=== PATIENT | female | born 2000 | race Caucasian/White ===

== ENCOUNTER 2019-09-28 09:25 | Outpatient (CLI) | payer OTHER, SELFPAY ==
[2019-09-28 13:17] LABS: Basophils Percent Auto 0.5 % (0.2-1.2); Eosinophils Absolute Auto 0.1 K/mm3 (0-0.3); Eosinophils Percent Auto 0.7 % (0-4.4); Hematocrit 41.1 % (37.0-47.0); Hemoglobin 13.6 g/dL (12.0-15.0); Immature Granulocyte Absolute 0.02 K/mm3 (0.00-0.031); Immature Granulocyte Percent A 0.2 % (0-0.5); Lymphocytes Percent Auto 35.7 % (18.3-44.2); Mean Corpuscular HGB Conc 33.1 g/dl (32-36); Mean Corpuscular Hemoglobin 29.2 pg (26-34); Mean Corpuscular Volume 88.4 fl (80-100); Mean Platelet Volume 11.4 fl (7.4-10.4); Monocytes Absolute Auto 0.4 K/mm3 (0.1-0.6); Monocytes Percent Auto 4.9 % (2.6-8.5); Platelet Count Result 302 k/mm3 (150-375); Red Blood Count 4.65 M/mm3 (4.2-5.4); Red Cell Distribution Width 13.1 % (11.5-14.5); White Blood Count 8.7 K/mm3 (4.5-10.0)
[2019-09-28 13:29] LABS: Alanine Aminotransferase 37 U/L (4-35); Albumin Level 4.5 g/dL (3.5-5.1); Alkaline Phosphatase 95 U/L (38-126); Aspartate Amino Transferase 32 U/L (14-36); Bilirubin,Total 0.4 mg/dL (0.2-1.3); Blood Urea Nitrogen 12 mg/dL (7-17); Calcium 9.4 mg/dL (8.4-10.2); Carbon Dioxide 27 mmol/L (22-30); Chloride 95 mmol/L (98-107); Cholesterol 166 mg/dL (0-200); Estimated Glomerular Filt Rate > 60; Glucose 95 mg/dL (65-105); HDL Direct 64 mg/dL; Potassium 3.7 mmol/L (3.4-5.0); Sodium 138 mmol/L (137-145); Triglycerides 125 mg/dL (<150)
[2019-09-28 13:40] LABS: LDL Cholesterol Direct 84 mg/dL
[2019-09-28 13:45] LABS: Free T4 Free Thyroxine 1.04 ng/mL (0.78-2.19)
[2019-09-28 13:52] LABS: Creatinine Urine 104.9 mg/dL
[2019-09-28 13:57] LABS: MALB Creatinine Ratio 6.9 mg/g (0-30); Microalbumin Urine Random 7.2 mg/L (0-16.7)
[2019-09-28 14:00] LABS: Cortisol Random 9.99 ug/dL; Total Triiodothyronine (T3) 3.71 NG/ML (0.97-1.69)
[2019-10-01 03:41] LABS: Thyroid Peroxidase Antibodies 57 IU/mL (<9)
[2019-10-01 03:55] LABS: Adrenocorticotropic Hormone 22 pg/mL (6-50)
[2019-10-01 07:05] LABS: C-Peptide <0.10 ng/mL (0.80-3.85)
[2019-10-04 01:10] LABS: Islet Cell Antibody Screen NEGATIVE (NEGATIVE)
== END 2019-09-28 09:26 | disposition home or self-care (01) ==
LOC: ANHWCLAB 09:32
PROVIDERS: PCP Family Medicine; Visit Provider Internal Medicine Endocrinology, Diabetes & Metabolism
DX: E10.65 Type 1 diabetes mellitus with hyperglycemia (principal); R63.5 Abnormal weight gain
CPT/HCPCS: 36415; 80053; 80061; 82024; 82043; 82306; 82533; 84439; 84443; 84480; 84681; 85025; 86341; 86376

== ENCOUNTER 2020-05-29 10:34 | Outpatient (NON) | payer OTHER, SELFPAY ==
[2020-05-30 13:59] LABS: SARS-CoV-2 RNA PCR Negative
== END 2020-05-29 10:35 ==
PROVIDERS: PCP Family Medicine; Visit Provider Family Medicine
DX: Z01.812 Encounter for preprocedural laboratory examination (principal); Z20.828 Contact with and (suspected) exposure to other viral communicable diseases
CPT/HCPCS: 87635; C9803; U0003

== ENCOUNTER 2020-06-23 08:25 | Outpatient (NON) | payer OTHER, SELFPAY ==
[2020-06-23 19:59] LABS: SARS-CoV-2 RNA PCR Negative
== END 2020-06-23 08:26 ==
PROVIDERS: PCP Family Medicine; Visit Provider Family Medicine
DX: Z20.828 Contact with and (suspected) exposure to other viral communicable diseases (principal); R68.89 Other general symptoms and signs
CPT/HCPCS: 87635; C9803; U0003

== ENCOUNTER 2020-08-25 11:45 | Outpatient (CLI) | payer OTHER, SELFPAY ==
[2020-08-25 22:17] LABS: SARS-CoV-2 RNA PCR Positive
== END 2020-08-25 11:46 | disposition home or self-care (01) ==
LOC: CHSLAB 11:48
PROVIDERS: PCP Family Medicine; Visit Provider Family Medicine
DX: U07.1 COVID-19 (principal)
CPT/HCPCS: C9803; U0003

== ENCOUNTER 2020-10-17 12:36 | Emergency (ER) | payer OTHER, SELFPAY ==
--- NOTE | ~2020-10-17 | XR_ITS ---
EXAMINATION: XR forearm LT 2V DATE: 10/17/2020 13:19 INDICATION: Pain and swelling at the distal left forearm after a door closed on the forearm. TECHNIQUE: AP an lateral views of the left forearm were obtained. COMPARISON: none FINDINGS: Alignment is normal. No fracture. Joint spaces are normal. Soft tissues are unremarkable. No left elb ow joint effusion. IMPRESSION: 1. Negative left forearm radiographs. Reviewed, dictated and finalized at location A. LER OPERATOR
[2020-10-17 12:50] VITALS: BP 141/100; PULSE 120; RESP 20; TEMP 36.9; O2SAT 97
[2020-10-17] MEDS: KETOROLAC (*BKC) 60 MG/2 ML VIAL IM (13:20)
--- NOTE | 2020-10-17 14:00 | ED.UPPEXIN ---
HPI - Extremity Injury (Upper) General Chief Complaint: Extremity Injury, Upper Stated Complaint: left arm is hurt Time Seen by Provider: 10/17/20 12:55 Source: patient Mode of arrival: ambulatory Limitations: no limitations History of Present Illness HPI narrative: Patient was at work and a door handle fell on her left forearm just up from the wrist on the radial side. Pain has been sharp moderately severe and associated with a lump on her left forearm that looks like a deformity. Pain has been ongoing since injury. Nothing seemed to make pain better or worse, except pressure made it worse. Other injuries: none Handedness: right Place: work Severity: moderate Relieving factors: none Exacerbating factors: none Context: direct blow Associated symptoms: denies other symptoms Related Data Home Medications Medication Instructions Recorded Confirmed insulin glargine [Basaglar KwikPen 40 unit SUBCUT HS 10/17/20 10/17/20 U-100 Insulin] insulin lispro [Admelog SoloStar 1 unit SUBCUT AC 10/17/20 10/17/20 U-100 Insulin] trazodone 50 mg PO HS 10/17/20 10/17/20 venlafaxine 150 mg PO DAILY 10/17/20 10/17/20 Allergies Allergy/AdvReac Type Severity Reaction Status Date / Time Penicillins Allergy Mild Verified 07/08/17 12:42 Sulfa (Sulfonamide Allergy Mild Verified 07/08/17 12:42 Antibiotics) Review of Systems Constitutional: Constitutional: Reports no additional constitutional complaints Eyes: Eyes: Reports no additional eye complaints ENT: Reports system reviewed and no additional complaints, except as documented Cardiovascular: Cardiovascular: Reports no additional cardiovascular complaints Respiratory: Respiratory: Reports no additional respiratory complaints Gastrointestinal: Gastrointestinal: Reports no additional gastrointestinal complaints Genitourinary: Genitourinary: Reports no additional female genitourinary complaints Musculoskeletal: Musculoskeletal: Reports no additional musculoskeletal complaints Integumentary/Breasts: Skin/Breast: Reports system reviewed and no additional complaints, except as docu Neurologic: Reports system reviewed and no additional complaints, except as documented Psychiatric: Psychiatric: Reports no additional psychiatric complaints Endocrine: Endocrine: Reports no additional endocrine complaints Hematologic/Lymphatic: Hematologic/Lymphatic: Reports no additional hematologic/lymphatic complaints Allergic/Immunologic: Allergic/Immunologic: Reports no additional allergic/immunologic complaints PMFSH Past Medical History Medical History Type 1 diabetes Family History Family History Mother No significant past medical history Social History Social History (Updated 10/18/20 @ 00:15 by Jaun Jacobson MD) Smoking status: Never smoker Alcohol use details: none Exam HENMT: Head: normal to inspection Ears: external ears normal and TM's normal bilaterally General nose exam: Normal nares present Face and sinus: normal facial exam Mouth: Yes moist mucous membranes Throat: posterior oropharynx normal Eyes: Conjunctivae: conjunctivae normal Neck: Neck: normal visual inspection Lymphatic: no lymphadenopathy noted Chest: Chest palpation & inspection: normal inspection of the chest Resp: Effort & Inspection: normal respiratory effort Auscultation: clear to auscultation bilaterally Cardio: Rate: regular rate Rhythm: regular rhythm GI: GI Palp: Yes Soft to palpation (nontender) Skin: General skin exam: normal color Neuro: General: patient oriented x3 and moves all extremities Extrem: General: normal to inspection Psych: Appearance: grossly normal Mental Status: mental status grossly normal Thought content: Yes Normal thought content present Course Course Emergency Course: Patient was given ketorolac 60mg Im and felt better a few minutes late
[2020-10-17 14:06] VITALS: RESP 17
== END 2020-10-17 14:07 | disposition home or self-care (01) ==
PROVIDERS: Emergency Provider Emergency Medicine; PCP Family Medicine
DX: M79.632 Pain in left forearm (principal); W22.8XXA Striking against or struck by other objects, initial encounter
CPT/HCPCS: 73090; 96372; 99283; J1885

== ENCOUNTER 2020-12-31 13:29 | Emergency (ER) | payer OTHER, SELFPAY ==
[2020-12-31 13:35] VITALS: BP 141/79; PULSE 118; RESP 16; TEMP 36.4; O2SAT 100
--- NOTE | 2020-12-31 13:40 | ED.NAVMDI ---
HPI - Nausea/Vomiting/Diarrhea General Chief complaint: Nausea/Vomiting/Diarrhea Stated complaint: fever nausea diahhrea Time Seen by Provider: 12/31/20 13:40 Source: patient and RN notes reviewed History of Present Illness HPI Narrative: Patient is a 20-year-old female who presents the urgent care with complaints of fever, nausea, diarrhea and vomiting. Patient also reports of some sinus congestion and sore throat. States that it started on Tuesday and the other people in the home have also been sick. Patient states that their symptoms have since improved and that she is needing a work note . Patient denies of any known exposure to strep, flu or Covid. Patient is juvenile diabetic and states that her blood sugars been running in the 130s to 180s. Patient states she has been able to keep down some food and fluids. Currently denies of any abdominal pain, chest pain or shortness of breath. Patient has taken Tylenol and ibuprofen for the fevers. No other acute complaints. No acute distress noted. Patient aware of the plan of care. Some parts of this dictation were generated by voice recognition software and may contain typographical and/or grammatical inaccuracies. Related Data Home Medications Medication Instructions Recorded Confirmed insulin glargine [Basaglar KwikPen 40 unit SUBCUT HS 10/17/20 10/17/20 U-100 Insulin] insulin lispro [Admelog SoloStar 1 unit SUBCUT AC 10/17/20 10/17/20 U-100 Insulin] trazodone 50 mg PO HS 10/17/20 10/17/20 venlafaxine 150 mg PO DAILY 10/17/20 10/17/20 Allergies Allergy/AdvReac Type Severity Reaction Status Date / Time Penicillins Allergy Mild Unknown Verified 12/31/20 13:54 Sulfa (Sulfonamide Allergy Mild Unknown Verified 12/31/20 13:54 Antibiotics) Review of Systems Review of Systems: Narrative: CONSTITUTIONAL: Reports a fever and fatigue EYES: Denies visual changes, redness, or discharge. ENT: Reports of sinus congestion and sore throat CARDIOVASCULAR: Denies chest pain, palpitations, or edema. RESPIRATORY: Denies cough or dyspnea. GASTROINTESTINAL: Reports of diarrhea, nausea and vomiting GENITOURINARY: Denies dysuria or hematuria. SKIN: Denies rash or itching. MUSCULOSKELETAL: Denies back pain, joint pain. NEUROLOGIC: Denies headache, numbness, or weakness. All other systems reviewed are negative, except as documented in HPI. [facility] Past Medical History Medical History Type 1 diabetes Family History Family History Mother No significant past medical history Social History Social History (Updated 10/18/20 @ 00:15 by Jaun Jacobson MD) Smoking status: Never smoker Gender identity (if verbalized by the patient): Female Comments At the time of my signature, I reviewed and agree with the nursing past medical, surgical, social, and family history. There is no relevant family history pertinent to the patient complaint. Exam Narrative: Exam Narrative: GENERAL: This is a well-nourished, well-developed patient, in no apparent distress. HEAD: normocephalic, atraumatic. EYES: PERRL. Sclera clear/white. Vision is grossly intact. EARS: External ears normal, auditory canals clear and without drainage, TMs normal without perforation. Hearing grossly intact. NOSE: External nose normal with no obvious nasal discharge, nares without redness, no rhinorrhea. THROAT: Mucous membranes moist, posterior pharynx clear. NECK: Neck supple CARDIOVASCULAR: Regular rate and rhythm without murmurs, gallops, or rubs. RESPIRATORY: Clear to auscultation. Breath sounds equal bilaterally. No wheezes, rales, or rhonchi. GASTROINTESTINAL: Abdomen soft, non-tender, nondistended. Bowel sounds are active. SKIN: warm, intact with no suspicious lesions or rash, good texture and turgor. NEURO: awake, alert, and oriented to person, place and time. There were no obvious focal neurologic abnormalities.
[2020-12-31 13:52] LABS: Glucose Point of Care 251 (65-105)
--- NOTE | 2020-12-31 14:06 | PC.NURSE ---
NO UC ORDERED PER PROVIDER
== END 2020-12-31 14:12 | disposition home or self-care (01) ==
PROVIDERS: Emergency Provider Nurse Practitioner Family; PCP Family Medicine
DX: K52.9 Noninfective gastroenteritis and colitis, unspecified (principal); Z20.822 Contact with and (suspected) exposure to COVID-19; E10.9 Type 1 diabetes mellitus without complications; E03.9 Hypothyroidism, unspecified; F41.9 Anxiety disorder, unspecified; F32.9 Major depressive disorder, single episode, unspecified
CPT/HCPCS: 81003; 82948; 87081; 87426; 87880; 99213; C9803; G0463

== ENCOUNTER 2021-01-05 11:54 | Outpatient (CLI) | payer OTHER, SELFPAY ==
--- NOTE | ~2021-01-05 | XR_ITS ---
XR chest 2V DATE: 01/05/2021 12:12 INDICATION: Cough, drainage for one week TECHNIQUE: PA and lateral views COMPARISON: 08/11/2016 PA and lateral chest FINDINGS: Normal heart size. No hilar or mediastinal enlargement. No pulmonary infiltrate or consolid ation, pleural effusion or pulmonary vascular congestion or pneumothorax. Included skeletal structure s are unremarkable. IMPRESSION: Negative Reviewed, dictated and finalized at location A. IMPRESSION: Negative
== END 2021-01-05 11:55 | disposition home or self-care (01) ==
LOC: CHSIMG 11:57
PROVIDERS: PCP Family Medicine; Visit Provider Nurse Practitioner
DX: R05 Cough (principal)
CPT/HCPCS: 71046

== ENCOUNTER 2021-04-05 17:37 | Emergency (ER) | payer OTHER, SELFPAY ==
[2021-04-05 17:44] VITALS: BP 139/73; PULSE 116; RESP 18; TEMP 36.7; O2SAT 99
[2021-04-05 17:54] VITALS: BP 139/73; PULSE 116; RESP 18; TEMP 36.7; O2SAT 99
--- NOTE | 2021-04-05 18:00 | ED.URI ---
HPI - URI/Sore Throat General Chief Complaint: Upper Respiratory Infection Stated Complaint: Stuffy Nose and sore throat Time Seen by Provider: 04/05/21 17:50 Source: patient and RN notes reviewed Mode of arrival: ambulatory Limitations: no limitations History of Present Illness HPI Narrative: Patient presents today requesting a note to return to work. Patient works at [employer]. She has a 3 to 4-day history of nasal congestion and intermittent headache. 2 days ago she had a negative COVID-19 test done at her work. Her employer is requiring her to come in for a formal evaluation and formal diagnosis before she can return to work. Denies fever, cough, sore throat. She has been taking motrin and benadryl for symptoms. MD elicited complaint: nasal congestion Related Data Home Medications Medication Instructions Recorded Confirmed insulin glargine [Basaglar KwikPen 35 unit SUBCUT HS 10/17/20 04/05/21 U-100 Insulin] insulin lispro [Admelog SoloStar 1 unit SUBCUT AC 10/17/20 04/05/21 U-100 Insulin] venlafaxine 150 mg PO DAILY 10/17/20 04/05/21 alprazolam 0.25 mg PO QID PRN 04/05/21 04/05/21 drospirenone (contraceptive) 4 mg PO DAILY 04/05/21 04/05/21 [Slynd] venlafaxine 75 mg PO DAILY 04/05/21 04/05/21 Allergies Allergy/AdvReac Type Severity Reaction Status Date / Time Penicillins Allergy Mild Unknown Verified 04/05/21 17:51 Sulfa (Sulfonamide Allergy Mild Unknown Verified 04/05/21 17:51 Antibiotics) Review of Systems Review of Systems: CONSTITUTIONAL: Denies body aches, fever, chills, or sweats. EYES: Denies visual changes, redness, or discharge. ENT: Denies rhinorrhea, sore throat, or otalgia.+ Congestion CARDIOVASCULAR: Denies chest pain, palpitations, or edema. RESPIRATORY: Denies cough or dyspnea. GASTROINTESTINAL: Denies abdominal pain, nausea, vomiting, or diarrhea. GENITOURINARY: Denies dysuria or hematuria. SKIN: Denies rash, itching, or wounds. MUSCULOSKELETAL: Denies back pain, joint pain, or myalgia. NEUROLOGIC: Denies headache, numbness, tingling, or weakness. PSYCH: Denies depression or anxiety. [facility] Past Medical History Medical History Type 1 diabetes Family History Family History Mother No significant past medical history Social History Social History Smoking status: Never smoker Alcohol use details: none Gender identity (if verbalized by the patient): Female Comments At time of signature, I have reviewed and agree with nursing past medical, surgical, social and family history unless otherwise noted. Please see nursing chart for further information. There is no relevant family history pertinent to the presenting complaint Exam Narrative: GENERAL: Well-appearing, well-nourished, and in no acute distress. HEAD: Normocephalic, atraumatic. EYES: EOMI. No redness or drainage. Conjunctivae normal. ENT: Mucous membranes pink and moist. Nares mildly congested. No rhinorrhea. TMs normal bilaterally. Throat normal. Uvula midline. NECK: Normal AROM. Supple. No lymphadenopathy. CHEST: No respiratory distress. Clear to auscultation. HEART: Regular rate and rhythm. No murmur appreciated. Normal peripheral pulses. EXTREMITIES: Normal range of motion. No edema. SKIN: Warm, dry, no rash. Capillary refill normal. Normal skin turgor. NEURO: No focal deficits. Alert and oriented x3. Gait steady. PSYCH: Normal affect. No signs of depression or anxiety. Course Vital Signs Vital signs: Vital Signs Temperature 98.0 F 04/05/21 17:44 Pulse Rate 116 H 04/05/21 17:44 Respiratory Rate 18 04/05/21 17:44 Blood Pressure 139/73 04/05/21 17:44 Pulse Oximetry 99 04/05/21 17:44 Temperature 98.0 F 04/05/21 17:54 Pulse Rate 116 H 04/05/21 17:54 Respiratory Rate 18
== END 2021-04-05 18:08 | disposition home or self-care (01) ==
PROVIDERS: Emergency Provider Nurse Practitioner; PCP Family Medicine
DX: J00 Acute nasopharyngitis [common cold] (principal); E10.9 Type 1 diabetes mellitus without complications
CPT/HCPCS: 99211; G0463

== ENCOUNTER 2021-09-04 12:10 | Emergency (ER) | payer OTHER, SELFPAY ==
[2021-09-04 12:33] VITALS: BP 115/64; PULSE 99; RESP 18; TEMP 36.8; O2SAT 99
--- NOTE | 2021-09-04 12:42 | ED.URI ---
HPI - URI/Sore Throat General Chief Complaint: Upper Respiratory Infection Stated Complaint: Sore throat, cough, congestion Time Seen by Provider: 09/04/21 12:42 Source: patient, family, RN notes reviewed and old records reviewed Mode of arrival: ambulatory Limitations: no limitations History of Present Illness HPI Narrative: 20-year-old female presents to the [facility] with complaints of sore throat, cough and congestion for the last 3 days. States she is to home COVID test which she reports is negative. Has not taken her temperature. No other treatment prior to arrival Related Data Home Medications Medication Instructions Recorded Confirmed insulin glargine [Basaglar KwikPen 35 unit SUBCUT HS 10/17/20 09/04/21 U-100 Insulin] insulin lispro [Admelog SoloStar 1 unit SUBCUT AC 10/17/20 09/04/21 U-100 Insulin] venlafaxine 150 mg PO DAILY 10/17/20 09/04/21 alprazolam 0.25 mg PO QID PRN 04/05/21 09/04/21 drospirenone (contraceptive) 4 mg PO DAILY 04/05/21 09/04/21 [Slynd] venlafaxine 75 mg PO DAILY 04/05/21 09/04/21 Allergies Allergy/AdvReac Type Severity Reaction Status Date / Time Penicillins Allergy Mild Unknown Verified 09/04/21 12:38 Sulfa (Sulfonamide Allergy Mild Unknown Verified 09/04/21 12:38 Antibiotics) Review of Systems Review of Systems: All systems reviewed & are unremarkable except as noted in HPI and below Constitutional: Constitutional: Reports no additional constitutional complaints, Denies chills, Denies fever(s) and Denies headache(s) Eyes: Eyes: Reports no additional eye complaints ENT: Reports as per HPI, Denies vertigo, Denies dizziness, Denies headache(s), Reports nasal congestion and Reports sore throat Cardiovascular: Cardiovascular: Reports no additional cardiovascular complaints, Denies chest pain, Denies syncope, Denies rapid heart rate and Denies dyspnea Respiratory: Respiratory: Reports as per HPI, Reports cough, Denies dyspnea and Denies wheezing Gastrointestinal: Gastrointestinal: Reports no additional gastrointestinal complaints, Denies abdominal pain, Denies diarrhea, Denies nausea and Denies vomiting Musculoskeletal: Musculoskeletal: Reports no additional musculoskeletal complaints and Denies numbness Integumentary/Breasts: Skin/Breast: Reports system reviewed and no additional complaints, except as docu Neurologic: Reports system reviewed and no additional complaints, except as documented, Denies vertigo, Denies dizziness, Denies syncope, Denies headache(s), Denies focal weakness and Denies numbness Psychiatric: Psychiatric: Reports no additional psychiatric complaints Allergic/Immunologic: Allergic/Immunologic: Reports no additional allergic/immunologic complaints and Denies wheezing PMFSH Past Medical History Medical History Type 1 diabetes Family History Family History Mother No significant past medical history Social History Social History Smoking status: Never smoker Alcohol use details: none Gender identity (if verbalized by the patient): Female Comments At the time of my signature, I reviewed and agree with the nursing past medical, surgical, social, and family history. There is no relevant family history pertinent to the patient complaint. Exam Const: General: cooperative, healthy appearing, no acute distress, well developed and alert Nutritional Appearance: well nourished and obese Orientation/consciousness: patient oriented x3 Limitations: no limitations HENMT: Head: normal to inspection Ears: external ears normal, TM's normal bilaterally and EAC's normal General nose exam: Normal external nose present Face and sinus: normal facial exam Mouth: Yes Normal oral and palatal mucosa present Throat: uvula midline, postnasal drainage and tonsils absent Eyes: Conjunctivae: conjuncti
[2021-09-05 23:20] LABS: SARS-CoV-2 RNA PCR Negative
== END 2021-09-04 12:55 | disposition home or self-care (01) ==
PROVIDERS: Emergency Provider Nurse Practitioner; PCP Family Medicine
DX: B34.9 Viral infection, unspecified (principal); Z20.822 Contact with and (suspected) exposure to COVID-19; E10.9 Type 1 diabetes mellitus without complications
CPT/HCPCS: 87081; 87804; 87880; 99213; C9803; G0463; U0003; U0005

== ENCOUNTER 2022-11-17 10:42 | Emergency (ER) | payer OTHER, SELFPAY ==
[2022-11-17 10:55] VITALS: BP 116/72; PULSE 137; RESP 16; TEMP 36.9; O2SAT 100
--- NOTE | 2022-11-17 11:56 | ED.URI ---
HPI - URI/Sore Throat General Chief Complaint: Upper Respiratory Infection Stated Complaint: Cough/Sore Throat Time Seen by Provider: 11/17/22 11:56 Source: patient, RN notes reviewed and old records reviewed Mode of arrival: ambulatory Limitations: no limitations History of Present Illness MD elicited complaint: cough and sore throat Related Data Home Medications Medication Instructions Recorded Confirmed insulin glargine 100 unit/mL (3 35 unit subcut HS 10/17/20 11/17/22 mL) subcutaneous pen (Basaglar KwikPen U-100 Insulin) insulin lispro 100 unit/mL 1 sliding scale dose subcut AC 10/17/20 11/17/22 subcutaneous pen (Admelog SoloStar U-100 Insulin lispro) venlafaxine 150 mg 150 mg PO QAM 10/17/20 11/17/22 capsule,extended release 24 hr alprazolam 0.25 mg tablet 0.25 mg PO QID PRN Anxiety 04/05/21 11/17/22 venlafaxine 75 mg tablet 75 mg PO QPM 04/05/21 11/17/22 Allergies Allergy/AdvReac Type Severity Reaction Status Date / Time Penicillins Allergy Mild Unknown Verified 11/17/22 11:20 Sulfa (Sulfonamide Allergy Mild Unknown Verified 11/17/22 11:20 Antibiotics) Review of Systems Review of Systems: CONSTITUTIONAL: Denies malaise, chills, sweats, or fever. EYES: Denies visual changes, redness, or discharge. ENT: Reports rhinorrhea, congestion, sinus pain, otalgia and sore throat. CARDIOVASCULAR: Denies chest pain, palpitations, or edema. RESPIRATORY: Reports cough.? Denies dyspnea. GASTROINTESTINAL: Denies abdominal pain, nausea, vomiting, diarrhea SKIN: Denies rash or itching. MUSCULOSKELETAL: Denies myalgia. NEUROLOGIC: Denies headache. All systems reviewed & are unremarkable except as noted in HPI and below PMFSH Past Medical History Medical History Type 1 diabetes Family History Family History Mother No significant past medical history Social History Social History Smoking status: Never smoker Alcohol use details: none Gender identity (if verbalized by the patient): Female Comments At time of signature, agree with nursing past medical, surgical, social and family history. There is no relevant family history pertinent to the presenting complaint Exam Narrative: GENERAL: Well-appearing, well-nourished, and in no acute distress. HEAD: Normocephalic EYES: PERRLA, conjunctivae clear ENT: Nares clear, turbinates edematous and erythematous, clear discharge. Mucous membranes moist. TM pearly ramirez with dull light reflex bilaterally; no tragal tenderness. Oropharynx erythematous without lesions. Tonsils not enlarged and without exudate, no drooling, no hoarseness, no trismus, uvula midline. NECK: Supple. No lymphadenopathy CHEST: Clear to auscultation, breath sounds equal. No wheezing, rhonchi, rales, or stridor. No respiratory distress, speaks in full sentences. HEART: Regular rate and rhythm. No murmur heard. SKIN: Warm, dry, no rash. NEURO: Alert and oriented x3. PSYCH: Normal mood and affect Course Course Emergency Course: Patient is aware of diagnosis, understands and agrees to treatment plan.? Anticipatory guidance given.? Patient agrees to follow-up as directed and is aware of reasons to seek care at the emergency department. Portions of this record may have been created with voice recognition software Level of Care: Express Care Visit Vital Signs Vital signs: Vital Signs Temperature 36.9 C 11/17/22 10:55 Pulse Rate 137 H 11/17/22 10:55 Respiratory Rate 16 11/17/22 10:55 Blood Pressure 116/72 11/17/22 10:55 Pulse Oximetry 100 11/17/22 10:55 Oxygen Delivery Room Air 11/17/22 10:55 Temperature 36.9 C 11/17/22 10:55 Pulse Rate 137 H 11/17/22 10:55 Respiratory Rate 16 11/17/22 10:55 Blood Pressure 116/72 11/17/22 10:55 Pulse Oximetry 100
--- NOTE | 2022-11-17 12:06 | ED.URI ---
HPI - URI/Sore Throat General Chief Complaint: Upper Respiratory Infection Stated Complaint: Cough/Sore Throat Time Seen by Provider: 11/17/22 11:56 Source: patient, RN notes reviewed and old records reviewed Mode of arrival: ambulatory Limitations: no limitations History of Present Illness HPI Narrative: 22-year-old female who presents to [facility] with complaints of sore throat and bilateral ear pain which started last night. 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 Patient denies any known fevers, chills or sweats or body aches, no dyspnea. MD elicited complaint: cough and sore throat Pertinent past history: pneumonia and asthma Onset (ago): day(s) (1) Pain scale (0-10): 6 Able to tolerate fluids by mouth: Yes Treatments prior to arrival: acetaminophen and other (Zyrtec) Related Data Home Medications Medication Instructions Recorded Confirmed insulin glargine 100 unit/mL (3 35 unit subcut HS 10/17/20 11/17/22 mL) subcutaneous pen (Basaglar KwikPen U-100 Insulin) insulin lispro 100 unit/mL 1 sliding scale dose subcut AC 10/17/20 11/17/22 subcutaneous pen (Admelog SoloStar U-100 Insulin lispro) venlafaxine 150 mg 150 mg PO QAM 10/17/20 11/17/22 capsule,extended release 24 hr alprazolam 0.25 mg tablet 0.25 mg PO QID PRN Anxiety 04/05/21 11/17/22 venlafaxine 75 mg tablet 75 mg PO QPM 04/05/21 11/17/22 Allergies Allergy/AdvReac Type Severity Reaction Status Date / Time Penicillins Allergy Mild Unknown Verified 11/17/22 11:20 Sulfa (Sulfonamide Allergy Mild Unknown Verified 11/17/22 11:20 Antibiotics) Review of Systems Review of Systems: CONSTITUTIONAL: Denies malaise, chills, sweats, or fever. EYES: Denies visual changes, redness, or discharge. ENT: Reports rhinorrhea, congestion, sinus pain, otalgia and sore throat. CARDIOVASCULAR: Denies chest pain, palpitations, or edema. RESPIRATORY: Reports cough.? Denies dyspnea. GASTROINTESTINAL: Denies abdominal pain, nausea, vomiting, diarrhea SKIN: Denies rash or itching. MUSCULOSKELETAL: Denies myalgia. NEUROLOGIC: Denies headache. All systems reviewed & are unremarkable except as noted in HPI and below PMFSH Past Medical History Medical History (Updated 11/18/22 @ 12:43 by Ariella Duncan NP) ADHD (attention deficit hyperactivity disorder) Anxiety and depression Asthma Type 1 diabetes Surgical History Surgical History (Updated 11/18/22 @ 12:43 by Ariella Duncan NP) History of tonsillectomy and adenoidectomy Family History Family History Mother No significant past medical history Social History Social History Smoking status: Never smoker Alcohol use details: none Gender identity (if verbalized by the patient): Female Comments At time of signature, agree with nursing past medical, surgical, social and family history. There is no relevant family history pertinent to the presenting complaint Exam Narrative: GENERAL: Well-appearing, well-nourished, and in no acute distress. HEAD: Normocephalic EYES: PERRLA, conjunctivae clear ENT: Nares clear, turbinates edematous and erythematous, clear discharge. Mucous membranes moist. TM pearly ramirez with dull light reflex bilaterally; no tragal tenderness. Oropharynx erythematous without lesions. Tonsils not present and throat without exudate, no drooling, no hoarseness, no trismus, uvula midline.post nasal drainage NECK: Supple. No lymphadenopathy CHEST: Clear to auscultation, breath sounds equal. No wheezing, rhonchi, rales, or stridor. No respiratory distress, speaks in full sentences.dry cough, SAO2 100% on room air HEART: Regular rate and rhythm. No murmur heard. SKIN: Warm, dry, no rash. NEURO
== END 2022-11-17 12:15 | disposition home or self-care (01) ==
PROVIDERS: Emergency Provider Registered Nurse; PCP Family Medicine
DX: J06.9 Acute upper respiratory infection, unspecified (principal); J02.9 Acute pharyngitis, unspecified; J45.909 Unspecified asthma, uncomplicated; E10.9 Type 1 diabetes mellitus without complications; F41.9 Anxiety disorder, unspecified; F32.A Depression, unspecified
CPT/HCPCS: 87081; 87880; 99213; G0463